=== PATIENT | male | born 1965 | race Caucasian/White ===

== ENCOUNTER → 2024-07-21 09:06 | Outpatient (REF) | payer SELFPAY | LOC: HWRAD 09:06 | PROVIDERS: ATTENDING PHYSICIAN Student in an Organized Health Care Education/Training Program | DX: Z00.00 Encounter for general adult medical examination without abnormal findings (principal); Z82.49 Family history of ischemic heart disease and other diseases of the circulatory system | CPT/HCPCS: 75571 ==

== ENCOUNTER → 2025-01-04 12:37 | Outpatient (REF) | payer OTHER, SELFPAY | LOC: HWRAD 12:37 | PROVIDERS: ATTENDING PHYSICIAN Student in an Organized Health Care Education/Training Program | DX: R91.1 Solitary pulmonary nodule (principal) | CPT/HCPCS: 71250 ==